=== PATIENT | male | born 1965 | race Caucasian/White ===

== ENCOUNTER 2016-12-09 19:29 | Emergency (ER) | payer OTHER ==
[~2016-12-09] VITALS: Ht 170.2 cm; Wt 116.8 kg
[2016-12-09 22:58] LABS: MCH 30.9 PG (29.0-34.0); MCHC 33.9 G/DL (30.0-36.0); MCV 91.1 FL (86-99); MEAN PLAT.VOLUME 11.7 uM^3 (9.0-12.4); PLATELET COUNT 151 K/uL (156-360); RBC DIS.WIDTH-CV 12.2 % (11.8-14.6); RBC DIS.WIDTH-SD 40.2 % (39-53); RED BLOOD COUNT 5.38 M/uL (4.00-5.50); WHITE BLOOD COUNT 8.2 K/uL (4.1-10.2)
[2016-12-09 23:10] LABS: CHLORIDE 104 mEq/L (99-109); POTASSIUM 4.4 mEq/L (3.7-5.4); SODIUM 139 mEq/L (136-147)
[2016-12-09 23:11] LABS: GLUCOSE 79 mg/dL (70-99)
[2016-12-09 23:13] LABS: ANION GAP 14 MEQ/L (2-14)
[2016-12-09 23:15] LABS: GFR ESTIMATE (CALCULATED) > 59 mL/min/
[2016-12-09 23:16] LABS: UREA NITROGEN (BUN) 17 mg/dL (9-23)
[2016-12-10 01:08] LABS: PTT 29.4 SEC (25-37)
[2016-12-10 01:21] VITALS: BP 155/109
== END 2016-12-10 01:48 | disposition short-term general hospital (02) ==
LOC: EME 19:29
PROVIDERS: Emergency Medicine
PROC: 3E0T3BZ Introduction of Anesthetic Agent into Peripheral Nerves and Plexi, Percutaneous Approach (ICD-10-PCS; principal; 2016-12-09)
DX: S68.120A Partial traumatic metacarpophalangeal amputation of right index finger, initial encounter (principal); S62.610B Displaced fracture of proximal phalanx of right index finger, initial encounter for open fracture; W29.8XXA Contact with other powered hand tools and household machinery, initial encounter
CPT/HCPCS: 73130; 80048; 85027; 85610; 85730; 86850; 86900; 86901; 99281; 99285; J0690; J2405; J3010; J7030; J7050